=== PATIENT | male | born 1995 | race Caucasian/White ===

== ENCOUNTER 2018-05-21 13:00 | Emergency (ER) | payer OTHER ==
[~2018-05-21] VITALS: Ht 185.4 cm; Wt 79.4 kg
[~2018-05-21 13:00] MED LIST: BUPR150ER PO; LEVSOD150 PO; LEVSOD75 PO; MIRT15 PO; Prinivil10 MG PO; VENL37.5ER PO
[2018-05-21] MEDS ORDERED: MIRT15 PO (13:40)
== END 2018-05-21 14:03 | disposition home or self-care (01) ==
LOC: ER 13:00
DX: S51.812D Laceration without foreign body of left forearm, subsequent encounter (principal); Z79.899 Other long term (current) drug therapy; F32.9 Major depressive disorder, single episode, unspecified